=== PATIENT | male | born 1955 | race African-American/Black ===

== ENCOUNTER 2020-11-02 10:02 | Day surgery (SDC) | payer OTHER ==
[~2020-11-02] VITALS: Ht 182.9 cm; Wt 81.8 kg
[~2020-11-02 10:02] MED LIST: SODIUM CHLORIDE 0.9% 1,000 ML IV ONE; SODIUM CHLORIDE 0.9% 1,000 ML ONE
[2020-11-02] MEDS ORDERED: DIAZEPAM 5 MG TABLET ONE (11:00)
[2020-11-02] MEDS ORDERED: ASPIRIN 81 MG CHEWABLE TABLET ONE (11:00)
[2020-11-02] MEDS ORDERED: DiphenhydrAMINE HCL 50 MG CAPSULE ONE (11:01)
[2020-11-02] MEDS ORDERED: HEPARIN SODIUM 1000 UNITS/NS 1,000 ML ONE (11:59)
[2020-11-02] MEDS ORDERED: LIDOCAINE/PF 1% 30 ML VIAL ONE (11:59)
[2020-11-02] MEDS ORDERED: IOHEXOL 300 MG/ML 100 ML VIAL ONE (11:59)
[2020-11-02] MEDS ORDERED: IOHEXOL 300 MG/ML 50 ML VIAL ONE (11:59)
[2020-11-02] MEDS ORDERED: IOHEXOL 300 MG/ML 150 ML VIAL ONE (11:59)
[2020-11-02] MEDS ORDERED: SODIUM BICARBONATE 50 MEQ/50 ML VIAL ONE (11:59)
[2020-11-02] MEDS ORDERED: ASPIRIN 81 MG CHEWABLE TABLET PO ONE (12:00)
[2020-11-02] MEDS ORDERED: DIAZEPAM 5 MG TABLET PO ONE (12:00)
[2020-11-02] MEDS ORDERED: DiphenhydrAMINE HCL 50 MG CAPSULE PO ONE (12:00)
[2020-11-02 12:27] VITALS: BP 194/103
[2020-11-02] MEDS ORDERED: MIDAZOLAM HCL 2 MG/2 ML VIAL ONE (12:34)
[2020-11-02] MEDS ORDERED: FentaNYL CITRATE PF 100 MCG/2 ML VIAL ONE (12:34)
[2020-11-02] MEDS ORDERED: HydrALAZINE HCL 20 MG/ML VIAL ONE (12:54)
[2020-11-02] MEDS ORDERED: METOPROLOL TARTRATE 5 MG/5 ML VIAL ONE (12:56)
[2020-11-02] MEDS ORDERED: HydrALAZINE HCL 20 MG/ML VIAL IVP ONE (13:00)
[2020-11-02] MEDS ORDERED: METOPROLOL TARTRATE 5 MG/5 ML VIAL IVP ONE (13:00)
[2020-11-02] MEDS ORDERED: HEPARIN SODIUM 1000 UNITS/NS 1,000 ML IARTER ONE (13:00)
[2020-11-02] MEDS ORDERED: LIDOCAINE 1% 30 ML/SOD BICARB 8.4% 4 ML SQ ONE (13:00)
[2020-11-02] MEDS ORDERED: FentaNYL CITRATE PF 100 MCG/2 ML VIAL IVP ONE (13:00)
[2020-11-02] MEDS ORDERED: IOHEXOL 300 MG/ML 150 ML VIAL IARTER ONE (13:00)
[2020-11-02] MEDS ORDERED: MIDAZOLAM HCL 2 MG/2 ML VIAL IVP ONE (13:00)
[2020-11-02 13:17] VITALS: BP 173/99
[2020-11-02] MEDS ORDERED: NIFE30TA98 PO (13:49)
[2020-11-02] MEDS ORDERED: FURO20 PO (13:49)
[2020-11-02] MEDS ORDERED: ASPI-1444 PO (13:49)
[2020-11-02] MEDS ORDERED: CARV25TA32 PO (13:49)
[2020-11-02] MEDS ORDERED: FURO20TA4 PO (13:49)
[2020-11-02] MEDS ORDERED: LINA5TAB PO (13:49)
[2020-11-02] MEDS ORDERED: METF-960 PO (13:50)
[2020-11-02] MEDS ORDERED: ALBU8.5H8 IH (13:51)
[2020-11-03 05:16] LABS: GLUCOMETER DEV NAME(LOC) SDS.; GLUCOSE,POINT OF CARE 202 MG/DL (70-110)
== END 2020-11-02 16:00 | disposition home or self-care (01) ==
LOC: CATHLAB 10:02
PROVIDERS: ATTEND Internal Medicine Interventional Cardiology
DX: R94.39 Abnormal result of other cardiovascular function study (principal); I25.10 Atherosclerotic heart disease of native coronary artery without angina pectoris; I50.32 Chronic diastolic (congestive) heart failure; I11.0 Hypertensive heart disease with heart failure; E11.9 Type 2 diabetes mellitus without complications; Z79.899 Other long term (current) drug therapy; Z98.890 Other specified postprocedural states; Z20.822 Contact with and (suspected) exposure to COVID-19; Z79.4 Long term (current) use of insulin
CPT/HCPCS: 82962; 93005; 93458; 99152; C1760; J0360; J1644; J2250; J3010; J3490 ×3; J7030; Q9967